=== PATIENT | female | born 1970 | race Caucasian/White ===

== ENCOUNTER 2019-01-17 09:57 | Emergency (ER) | payer OTHER ==
[~2019-01-17] VITALS: Ht 162.6 cm; Wt 59.0 kg
[~2019-01-17 09:57] MED LIST: CELEBREX100 MG PO; FLEXERIL10 MG PO; MYRAC50 MG PO; [UNRECOGNIZED DRUG - OTHER]
== END 2019-01-17 14:40 | disposition home or self-care (01) ==
LOC: ER 09:57
DX: R10.13 Epigastric pain (principal); M54.5 Low back pain